=== PATIENT | female | born 1980 | race American Indian/Alaskan Native ===

== ENCOUNTER 2018-06-07 08:48 | Emergency (ER) | payer MEDICARE ==
--- NOTE | 2018-06-07 09:40 | Emergency Department Report ---
ED General Adult HPI - General Chief complaint: Skin Rash Stated complaint: FLEA/TICK BITES Time Seen by Provider: 06/07/18 09:20 Source: patient Mode of arrival: Ambulatory Limitations: No Limitations - History of Present Illness Initial comments: 37-year-old female reports flea bites x1 month. Patient states she moved into a new apartment that is infested with fleas. States she informed the person that she is renting the apartment from, however nothing has been done. Patient reports diffuse itching due to bites. Patient also reports history of anemia and states she is out of her iron pills, requesting refill. Patient also reports insomnia. MD Complaint: Flea bites -: month(s) (1) Location: back, abdomen, upper extremity, lower extremity Quality: other (itching) Improves with: none Worsens with: none Associated Symptoms: denies: fever/chills, nausea/vomiting - Related Data Home Medications Medication Instructions Recorded Confirmed Last Taken traZODone [Desyrel] 50 mg PO QHS 05/15/13 03/30/14 03/29/14 buPROPion [Wellbutrin] 150 mg PO BID 07/04/13 03/30/14 03/29/14 hydrOXYzine PAMOATE [Vistaril] 50 mg PO Q8HR PRN 03/30/14 03/30/14 03/29/14 Previous Rx's Medication Instructions Recorded Last Taken Type Ferrous Sulfate [Iron] 325 mg PO TID #90 tablet 06/07/18 Unknown Rx hydrOXYzine HCl [Hydroxyzine HCl] 25 mg PO Q8HR PRN #20 tablet 06/07/18 Unknown Rx Allergies Allergy/AdvReac Type Severity Reaction Status Date / Time loratadine [From Claritin] Allergy Vomiting Verified 06/07/18 08:56 ED Review of Systems ROS: Stated complaint: FLEA/TICK BITES Other details as noted in HPI Comment: All other systems reviewed and negative Constitutional: chills. denies: fever Skin: rash Psychiatric: other (reports insomnia). denies: homicidal thoughts, suicidal thoughts ED Past Medical Hx - Past Medical History Hx Hypertension: Yes (no meds) Hx Seizures: No Hx Psychiatric Treatment: Yes (depression) Additional medical history: major depression - Surgical History Additional Surgical History: c/s - Social History Smoking Status: Never Smoker Substance Use Type: None - Medications Home Medications: Home Medications Medication Instructions Recorded Confirmed Last Taken Type traZODone [Desyrel] 50 mg PO QHS 05/15/13 03/30/14 03/29/14 History buPROPion [Wellbutrin] 150 mg PO BID 07/04/13 03/30/14 03/29/14 History hydrOXYzine PAMOATE [Vistaril] 50 mg PO Q8HR PRN 03/30/14 03/30/14 03/29/14 History Ferrous Sulfate [Iron] 325 mg PO TID #90 tablet 06/07/18 Unknown Rx hydrOXYzine HCl [Hydroxyzine HCl] 25 mg PO Q8HR PRN #20 tablet 06/07/18 Unknown Rx ED Physical Exam - General Limitations: No Limitations General appearance: alert - Head Head exam: Present: atraumatic, normocephalic - Eye Eye exam: Present: normal appearance - ENT ENT exam: Present: mucous membranes moist - Neck Neck exam: Present: normal inspection - Respiratory Respiratory exam: Present: normal lung sounds bilaterally. Absent: respiratory distress - Cardiovascular Cardiovascular Exam: Present: normal rhythm, tachycardia - GI/Abdominal GI/Abdominal exam: Present: soft. Absent: tenderness - Extremities Exam Extremities exam: Present: normal inspection - Neurological Exam Neurological exam: Present: alert, oriented X3 - Psychiatric Psychiatric exam: Present: normal affect, normal mood - Skin Skin exam: Present: other (small, papular lesions present sporadically on bilateral arms) ED Course Vital Signs 06/07/18 06/07/18 08:56 09:52 Temperature 98.6 F 98.5 F Pulse Rate 102 H 77 Respiratory 18 16 Rate Blood Pressure 122/89 Blood Pressure 123/74 [Left] O2 Sat by Pulse 99 99 Oximetry ED Medical Decision Making - Differential Diagnosis insect bites Critical care attestation.: If time is entered above; I have spent that time in minutes in the direct care of this critically ill patient, excluding procedure time. ED Disposition Clinical Impression: Insect bite, Medication refill Disposition: -01 TO HOME OR SELFCARE Is pt being admited?: No Condition: Stable Instructions: Insect Bite or Sting (ED) Prescriptions: Ferrous Sulfate [Iron] 325 mg PO TID #90 tablet hydrOXYzine HCl [Hydroxyzine HCl] 25 mg PO Q8HR PRN #20 tablet PRN Reason: Itching Referrals: [facility] [Provider Group] - 3-5 Days [facility] [Outside] - 3-5 Days Time of Disposition: 09:43
[2018-06-07 09:54] VITALS: BP 123/74
== END 2018-06-07 09:52 | disposition home or self-care (01) ==
LOC: ED 08:48
DX: S20.469A Insect bite (nonvenomous) of unspecified back wall of thorax, initial encounter (principal); S30.861A Insect bite (nonvenomous) of abdominal wall, initial encounter; S40.862A Insect bite (nonvenomous) of left upper arm, initial encounter; S40.861A Insect bite (nonvenomous) of right upper arm, initial encounter; S80.862A Insect bite (nonvenomous), left lower leg, initial encounter; S80.861A Insect bite (nonvenomous), right lower leg, initial encounter; W57.XXXA Bitten or stung by nonvenomous insect and other nonvenomous arthropods, initial encounter; Y93.89 Activity, other specified; Y92.89 Other specified places as the place of occurrence of the external cause; Y99.8 Other external cause status
CPT/HCPCS: 99282

== ENCOUNTER 2019-01-22 16:37 | Emergency (ER) | payer SELFPAY ==
--- NOTE | 2019-01-22 17:43 | Emergency Department Report ---
Blank Doc - Documentation Documentation: 38 y/o c/o of left ear pain dull and throbbing for few hours. also has left ab dominal pain for 2-3 months sharp no dysuria or discharge.
--- NOTE | 2019-01-22 20:15 | Emergency Department Report ---
ED ENT HPI - General Chief complaint: Earache Stated complaint: EAR INFECTION Time Seen by Provider: 01/22/19 17:41 Source: patient Mode of arrival: Ambulatory Limitations: No Limitations - History of Present Illness Initial comments: This is a 38-year-old female brought by mother nontoxic, well nourished in appearance, no acute signs of distress presents to the ED with c/o of left earache. Patient denies any ear drainage. Patient denies any trauma to the area. Patient denies any mastoid tenderness or tragus tenderness. Patient denies hearing decrease or hearing changes. Patient also has a secondary complaint of acute on chronic intermittent left lateral hip pain which is worse with movement. Patient states that she does heavy lifting at work and is worsened after a prolonged period of work. Currently the patient stated that symptoms resolved. Patient denies any trauma to the area. Patient denies any abdominal pain or back pain. Denies any urinary symptoms. Denies decreased range of motion Patient denies any fever, chills, nausea, vomiting, chest pain, short of breath, headache or stiff neck. Patient denies any significant past medical history with allergies to loratadine. MD complaint: ear pain -: days(s) Location: L ear Severity: mild Severity scale (0 -10): 8 Quality: aching Consistency: constant Improves with: none Worsens with: none Associated Symptoms: denies: fever, cough, gum swelling, toothache, pain with swallowing, sore throat, tinnitus, hearing loss, discharge from ear, rhinorrhea - Related Data Home Medications Medication Instructions Recorded Confirmed Last Taken traZODone [Desyrel] 50 mg PO QHS 05/15/13 03/30/14 03/29/14 buPROPion [Wellbutrin] 150 mg PO BID 07/04/13 03/30/14 03/29/14 hydrOXYzine PAMOATE [Vistaril] 50 mg PO Q8HR PRN 03/30/14 03/30/14 03/29/14 Previous Rx's Medication Instructions Recorded Last Taken Type Ferrous Sulfate [Iron 325 MG] 325 mg PO TID #90 tablet 06/07/18 Unknown Rx hydrOXYzine HCl [Hydroxyzine HCl] 25 mg PO Q8HR PRN #20 tablet 06/07/18 Unknown Rx Amoxicillin [Amoxicillin TAB] 875 mg PO BID #20 tablet 01/22/19 Unknown Rx Ibuprofen [Motrin] 600 mg PO Q8H PRN #20 tablet 01/22/19 Unknown Rx Allergies Allergy/AdvReac Type Severity Reaction Status Date / Time loratadine [From Claritin] Allergy Vomiting Verified 01/22/19 16:39 ED Dental HPI - General Chief complaint: Earache Stated complaint: EAR INFECTION Time Seen by Provider: 01/22/19 17:41 Source: patient Mode of arrival: Ambulatory Limitations: No Limitations - Related Data Home Medications Medication Instructions Recorded Confirmed Last Taken traZODone [Desyrel] 50 mg PO QHS 05/15/13 03/30/14 03/29/14 buPROPion [Wellbutrin] 150 mg PO BID 07/04/13 03/30/14 03/29/14 hydrOXYzine PAMOATE [Vistaril] 50 mg PO Q8HR PRN 03/30/14 03/30/14 03/29/14 Previous Rx's Medication Instructions Recorded Last Taken Type Ferrous Sulfate [Iron 325 MG] 325 mg PO TID #90 tablet 06/07/18 Unknown Rx hydrOXYzine HCl [Hydroxyzine HCl] 25 mg PO Q8HR PRN #20 tablet 06/07/18 Unknown Rx Amoxicillin [Amoxicillin TAB] 875 mg PO BID #20 tablet 01/22/19 Unknown Rx Ibuprofen [Motrin] 600 mg PO Q8H PRN #20 tablet 01/22/19 Unknown Rx Allergies Allergy/AdvReac Type Severity Reaction Status Date / Time loratadine [From Claritin] Allergy Vomiting Verified 01/22/19 16:39 ED Review of Systems ROS: Stated complaint: EAR INFECTION Other details as noted in HPI Constitutional: denies: chills, fever Eyes: denies: eye pain, eye discharge, vision change ENT: ear pain. denies: throat pain Respiratory: denies: cough, shortness of breath, wheezing Cardiovascular: denies: chest pain, palpitations Endocrine: no symptoms reported Gastrointestinal: denies: abdominal pain, nausea, diarrhea Genitourinary: denies: urgency, dysuria, discharge Musculoskeletal: denies: back pain, joint swelling, arthralgia Skin: denies: rash, lesions Neurological: denies: headache, weakness, paresthesias Psychiatric: denies: anxiety, depression Hematological/Lymphatic: denies: easy bleeding, easy bruising ED Past Medical Hx - Past Medical History Hx Hypertension: Yes (no meds) Hx Seizures: No Hx Psychiatric Treatment: Yes Additional medical history: major depression - Surgical History Additional Surgical History: C/S - Social History Smoking Status: Never Smoker Substance Use Type: None - Medications Home Medications: Home Medications Medication Instructions Recorded Confirmed Last Taken Type traZODone [Desyrel] 50 mg PO QHS 05/15/13 03/30/14 03/29/14 History buPROPion [Wellbutrin] 150 mg PO BID 07/04/13 03/30/14 03/29/14 History hydrOXYzine PAMOATE [Vistaril] 50 mg PO Q8HR PRN 03/30/14 03/30/14 03/29/14 History Ferrous Sulfate [Iron 325 MG] 325 mg PO TID #90 tablet 06/07/18 Unknown Rx hydrOXYzine HCl [Hydroxyzine HCl] 25 mg PO Q8HR PRN #20 tablet 06/07/18 Unknown Rx Amoxicillin [Amoxicillin TAB] 875 mg PO BID #20 tablet 01/22/19 Unknown Rx Ibuprofen [Motrin] 600 mg PO Q8H PRN #20 tablet 01/22/19 Unknown Rx ED Physical Exam - General Limitations: No Limitations General appearance: alert, in no apparent distress - Head Head exam: Present: atraumatic, normocephalic - Eye Eye exam: Present: normal appearance - Expanded ENT Exam Expanded Ear exam: Present: normal external inspection TM/Canal exam: Erythema: Left TM, Bulging: Left TM Mouth exam: Present: normal external inspection. Absent: drooling, trismus, muffled voice Teeth exam: Present: normal inspection Throat exam: Positive: normal inspection - Neck Neck exam: Present: normal inspection, full ROM. Absent: tenderness, meningismus, lymphadenopathy - GI/Abdominal GI/Abdominal exam: Present: soft, normal bowel sounds. Absent: distended, tenderness, guarding, rebound, rigid, diminished bowel sounds - Extremities Exam Extremities exam: Present: normal inspection, full ROM, normal capillary refill. Absent: tenderness, joint swelling - Expanded Lower Extremity Exam Left Hip exam: Present: normal inspection, full ROM, external rotation, internal rotation, pelvic stability. Absent: tenderness, swelling, abrasion, laceration, ecchymosis, deformity, crepidus, dislocation, erythema, shortening Upper Leg exam: Present: normal inspection, full ROM. Absent: tenderness Knee exam: Present: normal inspection, full ROM. Absent: tenderness, swelling Gait: Positive: observed and normal - Back Exam Back exam: Present: normal inspection, full ROM. Absent: tenderness, CVA tenderness (R), CVA tenderness (L), muscle spasm, paraspinal tenderness, vertebral tenderness, rash noted - Neurological Exam Neurological exam: Present: alert, oriented X3 - Psychiatric Psychiatric exam: Present: normal affect, normal mood - Skin Skin exam: Present: warm, dry, intact, normal color. Absent: rash ED Course Vital Signs 01/22/19 17:36 Temperature 98.3 F Pulse Rate 113 H Respiratory 16 Rate Blood Pressure 128/87 O2 Sat by Pulse 100 Oximetry - Reevaluation(s) Reevaluation #1: 01/22/19 20:13 Patient is speaking in full sentences with no signs of distress noted. ED Medical Decision Making - Medical Decision Making Patient was instructed to Follow-up with a primary care doctor in 3-5 days or if symptoms worsen and continue return to emergency room as soon as possible. At time of discharge, the patient does not seem toxic or ill in appearance. No acute signs of distress noted. Patient agrees to discharge treatment plan of care. No further questions noted by the patient. Critical care attestation.: If time is entered above; I have spent that time in minutes in the direct care of this critically ill patient, excluding procedure time. ED Disposition Clinical Impression: Left otitis media Qualifiers: Otitis media type: unspecified Qualified Code(s): H66.92 - Otitis media, unspecified, left ear Muscle strain of left hip Qualifiers: Encounter type: initial encounter Qualified Code(s): S76.012A - Strain of muscle, fascia and tendon of left hip, initial encounter Disposition: TO HOME OR SELFCARE Is pt being admited?: No Does the pt Need Aspirin: No Condition: Stable Instructions: Otitis Media (ED), Muscle Strain (ED) Additional Instructions: Follow-up with a primary care doctor in 3-5 days or if symptoms worsen and continue return to emergency room as soon as possible. Prescriptions: Amoxicillin [Amoxicillin TAB] 875 mg PO BID #20 tablet Ibuprofen [Motrin] 600 mg PO Q8H PRN #20 tablet PRN Reason: Pain Referrals: YAHAIRA SALDANA MD [Primary Care Provider] - 3-5 Days PRIMARY CARE, [Referring] - 3-5 Days JANINE MCNEIL MD [Staff Physician] - 3-5 Days [facility] [Outside] - 3-5 Days [facility] [Outside] - 3-5 Days Forms: Work/School Release Form(ED)
[2019-01-22 20:25] VITALS: BP 127/81
== END 2019-01-22 20:25 | disposition home or self-care (01) ==
LOC: ED 16:37
DX: S76.012A Strain of muscle, fascia and tendon of left hip, initial encounter (principal); H66.92 Otitis media, unspecified, left ear; I10 Essential (primary) hypertension; F32.9 Major depressive disorder, single episode, unspecified; Z79.899 Other long term (current) drug therapy; Z88.8 Allergy status to other drugs, medicaments and biological substances; X58.XXXA Exposure to other specified factors, initial encounter; Y93.89 Activity, other specified; Y92.89 Other specified places as the place of occurrence of the external cause; Y99.8 Other external cause status
CPT/HCPCS: 99282